=== PATIENT | female | born 1970 | race Caucasian/White ===

== ENCOUNTER 2023-10-14 18:11 | Emergency (ER) | payer SELFPAY ==
[2023-10-14 18:21] VITALS: BP 113/73; PULSE 67; RESP 18; TEMP 98.5; BMI 39.8
[2023-10-14] MEDS ORDERED: IBUPROFEN 600 MG TABLET (FP) PO ONE (19:49)
[2023-10-14] MEDS ORDERED: ACETAMINOPHEN 500 MG TABLET (FP) ONE (19:49)
[2023-10-14] MEDS: ACETAMINOPHEN 500 MG TABLET (FP) PO ONE (19:51)
[2023-10-14] MEDS: IBUPROFEN 600 MG TABLET (FP) PO ONE (19:51)
== END 2023-10-14 23:17 | disposition home or self-care (01) ==
LOC: JER 18:11 → JERFT 18:11 → JER 23:17
DX: M25.562 Pain in left knee (principal); M25.862 Other specified joint disorders, left knee
CPT/HCPCS: 73562-TC-LT-FY; 93971-TC; 99284-25